=== PATIENT | male | born 1955 | race African-American/Black ===

== ENCOUNTER 2021-02-07 15:44 | Emergency (ER) | payer MEDICARE, OTHER ==
[~2021-02-07] VITALS: Ht 182.9 cm; Wt 77.1 kg
--- NOTE | 2021-02-07 15:51 | NUR ---
Dr Alves at the bedside for MSE.
[2021-02-07] MEDS ORDERED: NALOXONE HCL 0.4 MG/ML AMPUL IV ONE (16:00)
[2021-02-07] MEDS ORDERED: IV NORMAL SALINE 1000 ML BAG IV ONE ×2 (16:00→16:45)
[2021-02-07] MEDS ORDERED: NALOXONE HCL 0.4 MG/ML AMPUL ONE (16:06)
[2021-02-07 16:16] LABS: BASOPHILS % (AUTO) 0.2 % (0.0-2.0); EOSINOPHILS % (AUTO) 0.1 % (0.0-7.0); HEMATOCRIT 39.3 % (36.7-47.1); HEMOGLOBIN 13.3 g/dL (12.5-16.3); LYMPHOCYTES # (AUTO) 0.5 K/uL (20.0-40.0); LYMPHOCYTES % (AUTO) 5.4 % (20.5-51.5); MEAN CORPUSCULAR HEMOGLOBIN 32.2 uug (23.8-33.4); MEAN CORPUSCULAR HGB CONC 34 g/dL (32.5-36.3); MEAN CORPUSCULAR VOLUME 95.3 fL (73.0-96.2); MONOCYTES # (AUTO) 0.4 K/uL (2.0-10.0); MONOCYTES % (AUTO) 4.2 % (0.0-11.0); NEUTROPHILS # (AUTO) 7.6 K/uL (1.8-8.9); NEUTROPHILS % (AUTO) 90.1 % (38.5-71.5); PLATELET COUNT (AUTO) 193 K/uL (152-348); RED BLOOD CELL COUNT(AUTO) 4.12 MIL/uL (4.06-5.63); WHITE BLOOD COUNT (AUTO) 8.5 K/uL (3.6-10.2)
[2021-02-07 16:17] LABS: CARBON DIOXIDE 27 mmol/L (21-32); CHLORIDE 101 mmol/L (98-107); CREATININE 1.9 mg/dL (0.6-1.3); GLUCOSE 102 mg/dL (74-106); POTASSIUM 3.7 mmol/L (3.5-5.1); UREA NITROGEN, BLOOD 15 mg/dL (7-18)
[2021-02-07 16:22] LABS: ETHANOL < 3 MG/DL (0-0)
[2021-02-07 16:23] LABS: ALANINE AMINOTRANSFERASE 17 U/L (16-63); ALKALINE PHOSPHATASE 54 U/L (50-136); ASPARTATE AMINOTRANSFERASE 18 U/L (15-37); BILIRUBIN,DIRECT 0.2 mg/dL (0.0-0.2); BILIRUBIN,TOTAL 0.6 mg/dL (0.2-1.0); TOTAL PROTEIN, SERUM 6.8 g/dL (6.4-8.2)
--- NOTE | 2021-02-07 16:26 | NUR ---
PT back from CT, resting w/ both eyes closed. Continue monitoring.
--- NOTE | 2021-02-07 17:48 | NUR ---
Dinner tray provided, pt ate w/ good appetite.
--- NOTE | 2021-02-07 18:45 | NUR ---
Pt made phone call to friend pick him up from ER.
[2021-02-07 18:46] VITALS: BP 130/81
--- NOTE | 2021-02-07 18:47 | NUR ---
Patient discharged to home in stable condition. Written and verbal after care instructions given. Patient verbalizes understanding of instructions. Stressed follow up or return to ER for worsening s/s.
== END 2021-02-07 18:49 | disposition home or self-care (01) ==
LOC: ER 15:44
DX: M62.82 Rhabdomyolysis (principal); N17.9 Acute kidney failure, unspecified; S80.02XA Contusion of left knee, initial encounter; S09.90XA Unspecified injury of head, initial encounter; W18.39XA Other fall on same level, initial encounter; Y92.89 Other specified places as the place of occurrence of the external cause; I95.1 Orthostatic hypotension; M19.072 Primary osteoarthritis, left ankle and foot; R94.31 Abnormal electrocardiogram [ECG] [EKG]; F17.210 Nicotine dependence, cigarettes, uncomplicated; I67.2 Cerebral atherosclerosis
CPT/HCPCS: 36415; 70450; 71045; 73564; 73610; 80048; 80076; 80320; 82550; 84484; 85025; 93005; 96361; 96374; 99285; J2310; 70030-TC; A4663; G0480; J7030